=== PATIENT | female | born 1980 ===

== ENCOUNTER 2020-11-25 11:18 | Emergency (ER) | payer SELFPAY ==
[2020-11-25 12:10] VITALS: BP 125/89
[2020-11-25] MEDS ORDERED: HYDROcodone/ACETAMINOPHEN 5-325 MG TAB PO ONE (12:23)
[2020-11-25] MEDS ORDERED: ONDANSETRON 4 MG ODT TAB PO ONE (12:23)
--- NOTE | 2020-11-25 12:24 | Emergency Department Report ---
ED General Adult HPI - General Chief complaint: Headache Stated complaint: FACE PAIN AND LEFT SIDED PAIN Time Seen by Provider: 11/25/20 12:18 Source: patient Mode of arrival: Ambulatory Limitations: No Limitations - History of Present Illness Initial comments: [employer] line use: [place] 40 year old female who reports no significant past medical hx presents to ED with c/o left sided body pain and left sided CONLEY and facial pain. She states her symptoms started yesterday. She states she received the second dose of her Pfizer vaccine yesterday. The shot was in her right deltoid. She states after receiving the shot is when her symptoms started. She states that she is hurting in her left face, left side of her head, left chest/ribs, left arm, left abdomen and left leg and left back. She states that she took Tylenol without much relief of her pain she reports some mild nausea but no vomiting. She denies any left-sided weakness or facial weakness, numbness or tingling. She denies any SOB, cough, diarrhea, fever, chills, UTI symptoms, or any other associated symptoms. MD Complaint: Left sided body pain/left sided CONLEY -: Gradual (yesterday ) - Related Data Previous Rx's Medication Instructions Recorded Last Taken Type Ibuprofen [Motrin] 800 mg PO Q8HR PRN #30 tablet 11/25/20 Unknown Rx methOCARBAMOL [Robaxin TAB] 750 mg PO BID #30 tab 11/25/20 Unknown Rx Allergies Allergy/AdvReac Type Severity Reaction Status Date / Time No Known Allergies Allergy Unverified 11/25/20 11:23 ED Review of Systems ROS: Stated complaint: FACE PAIN AND LEFT SIDED PAIN Other details as noted in HPI Comment: All other systems reviewed and negative Constitutional: denies: chills, diaphoresis, fever, malaise, weakness ENT: other (left sided facial pain ). denies: ear pain, throat pain, dental stephanie n, hearing loss, epistaxis, congestion Respiratory: denies: cough, shortness of breath, SOB with exertion, SOB at rest, wheezing Cardiovascular: other (Left sided rib/cp ). denies: palpitations, dyspnea on exertion, orthopnea, edema, syncope, paroxysmal nocturnal dyspnea Gastrointestinal: abdominal pain, nausea. denies: vomiting, diarrhea, constipation, hematemesis, melena, hematochezia Genitourinary: denies: urgency, dysuria, frequency, hematuria, discharge, abnormal menses, dyspareunia Musculoskeletal: back pain, arthralgia, myalgia Skin: denies: rash, lesions Neurological: headache. denies: weakness, numbness, paresthesias, confusion, abnormal gait, vertigo Psychiatric: denies: anxiety, depression, auditory hallucinations, visual hallucinations, homicidal thoughts, suicidal thoughts Hematological/Lymphatic: denies: easy bleeding, easy bruising ED Past Medical Hx - Past Medical History Previous Medical History?: No - Surgical History Past Surgical History?: No - Social History Smoking Status: Never Smoker Substance Use Type: None - Medications Home Medications: Home Medications Medication Instructions Recorded Confirmed Last Taken Type Ibuprofen [Motrin] 800 mg PO Q8HR PRN #30 tablet 11/25/20 Unknown Rx methOCARBAMOL [Robaxin TAB] 750 mg PO BID #30 tab 11/25/20 Unknown Rx ED Physical Exam - General Limitations: No Limitations General appearance: alert, in no apparent distress - Head Head exam: Present: atraumatic, normocephalic, normal inspection - Eye Eye exam: Present: normal appearance, PERRL, EOMI Pupils: Present: normal accommodation - ENT ENT exam: Present: normal exam, mucous membranes moist, TM's normal bilaterally - Neck Neck exam: Present: normal inspection, full ROM. Absent: meningismus - Respiratory Respiratory exam: Present: normal lung sounds bilaterally, chest wall tenderness (left side ). Absent: respiratory distress, wheezes, rales, rhonchi - Cardiovascular Cardiovascular Exam: Present: regular rate, normal rhythm, normal heart sounds - GI/Abdominal GI/Abdominal exam: Present: soft, tenderness (very mild ttp without guarding or rebound ). Absent: distended, guarding - Extremities Exam Extremities exam: Present: normal inspection, full ROM, tenderness (diffuse muscle ttp left upper arm and shoulder and left lower leg ), normal capillary refill. Absent: pedal edema, joint swelling, calf tenderness - Back Exam Back exam: Present: normal inspection, full ROM, paraspinal tenderness (diffusely left thoracic and lumbar). 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 Absent: motor sensory deficit, reflexes normal - Psychiatric Psychiatric exam: Present: normal affect, normal mood - Skin Skin exam: Present: intact, normal color. Absent: rash ED Course Vital Signs 11/25/20 12:07 Temperature 98.9 F Pulse Rate 72 Respiratory 18 Rate Blood Pressure 125/89 O2 Sat by Pulse 98 Oximetry ED Medical Decision Making - Lab Data Result diagrams: 11/25/20 12:54 11/25/20 12:54 - EKG Data EKG shows normal: sinus rhythm Rate: normal (60) - EKG Data Interpretation: normal EKG - Radiology Data Radiology results: report reviewed Patient: GIOVANNI FRANCE MR#: [id number] : 1980 Acct:[id number] Age/Sex: 40 / F ADM Date: 11/25/20 Loc: ED Attending Dr: Ordering Physician: NEL PERKINS Date of Service: 11/25/20 Procedure(s): CT head/brain wo con Accession Number(s): [id number] cc: NEL PERKINS CT HEAD WITHOUT CONTRAST INDICATION / CLINICAL INFORMATION: Severe left sided CONLEY. TECHNIQUE: All CT scans at this location are performed using CT dose reduction for ALARA by means of automated exposure control. COMPARISON: None available. FINDINGS: HEMORRHAGE: None. EXTRA-AXIAL SPACES: Normal in size and morphology for the patient's age. VENTRICULAR SYSTEM: Normal in size and morphology for the patient's age. CEREBRAL PARENCHYMA: Multiple small benign scattered calcifications within both cerebral hemispheres. No significant abnormality. No acute territorial infarct. MIDLINE SHIFT OR HERNIATION: None. CEREBELLUM / BRAINSTEM: No significant abnormality. ORBITS: Normal as visualized. SOFT TISSUES of HEAD: No significant abnormality. CALVARIUM: No significant abnormality. PARANASAL SINUSES / MASTOID AIR CELLS: Normal as visualized. ADDITIONAL FINDINGS: None. IMPRESSION: 1. No acute intracranial abnormality. 2. 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 Signer Name: Aiden Evans MD Signed: 11/25/2020 1:52 PM Workstation Name: [id number] Transcribed By: TL Dictated By: Aiden Evans MD Electronically Authenticated By: Aiden Evans MD Signed Date/Time: 11/25/20 1352 DD/ 1342 TD/TT: - Medical Decision Making Patient presents to the ER today complaint of left-sided body pain and severe left-sided headache which started yesterday after she got her second Covid vaccine. She reports nausea but no other symptoms. Work-up today including head CT shows nothing acute. Patient has a chronic limp on her left side but otherwise she has no focal deficits on exam. She is not toxic or ill appearing and she is not in any pain or respiratory distress. Her VS are stable. Her history, exam, diagnostic testing and the patient's current condition does not suggest meningitis, stroke, sepsis, subarachnoid hemorrhage, intracranial bleeding, encephalitis, temporal arteritis or other significant pathology to warrant further testing, continued ED treatment, admission, neurological consul tation or other specialist evaluation at this point. Suspect musculoskeletal pain/atypical migraine which could possibly side effect from the Pfizer vaccine at this time. Discussed lab and imaging results and suspected diagnosis with patient. She expressed understanding of instructions and agree with plan. Patient stable at time of discharge Critical care attestation.: If time is entered above; I have spent that time in minutes in the direct care of this critically ill patient, excluding procedure time. ED Disposition Clinical Impression: Pain of left side of body, Side effects of vaccination, Headache Disposition: DC-01 TO HOME OR SELFCARE Is pt being admited?: No Does the pt Need Aspirin: No Condition: Stable Instructions: General Headache Without Cause, Muscle Pain, Adult Additional Instructions: Take the Motrin and muscle relaxer as prescribed. Follow up with PCP next week. Return to ED if worse. Prescriptions: Ibuprofen [Motrin] 800 mg PO Q8HR PRN #30 tablet PRN Reason: pain methOCARBAMOL [Robaxin TAB] 750 mg PO BID #30 tab Referrals: RONNIE MIDDLETON MD [Staff Physician] - 3-5 Days Forms: Work/School Release Form(ED) Time of Disposition: 15:31
[2020-11-25 13:13] LABS: Basophils % (Auto) 0.4 % (0.0-1.8); Eosinophils # (Auto) 0.1 K/mm3 (0.0-0.4); Eosinophils % (Auto) 0.7 % (0.0-4.3); Hematocrit 37.3 % (30.3-42.9); Hemoglobin 12.5 gm/dl (10.1-14.3); Lymphocytes # (Auto) 1.3 K/mm3 (1.2-5.4); Lymphocytes % (Auto) 18.7 % (13.4-35.0); Mean Corpuscular HGB Conc 34 % (30-34); Mean Corpuscular Volume 86 fl (79-97); Monocytes # (Auto) 0.6 K/mm3 (0.0-0.8); Monocytes % (Auto) 8.6 % (0.0-7.3); Platelet Count 264 K/mm3 (140-440); Red Blood Count 4.34 M/mm3 (3.65-5.03); Red Cell Distribution Width 14.2 % (13.2-15.2)
[2020-11-25 13:26] LABS: Alanine Aminotransferase 14 units/L (7-56); Albumin 4.4 g/dL (3.9-5); Blood Urea Nitrogen 10 mg/dL (7-17); Calcium 8.6 mg/dL (8.4-10.2); Hemolysis Index 6
[2020-11-25 13:36] LABS: BUN/Creatinine Ratio 33
--- NOTE | 2020-11-25 13:57 | Cat Scan Report ---
CT HEAD WITHOUT CONTRAST INDICATION / CLINICAL INFORMATION: Severe left sided CONLEY. TECHNIQUE: All CT scans at this location are performed using CT dose reduction for ALARA by means of automated e xposure control. COMPARISON: None available. FINDINGS: HEMORRHAGE: None. EXTRA-AXIAL SPACES: Normal in size and morphology for the patient's age. VENTRICULAR SYSTEM: Normal in size and morphology for the patient's age. CEREBRAL PARENCHYMA: Multiple small benign scattered calcifications within both cerebral hemispheres. No significant abnormality. No acute territorial infarct. MIDLINE SHIFT OR HERNIATION: None. CEREBELLUM / BRAINSTEM: No significant abnormality. ORBITS: Normal as visualized. SOFT TISSUES of HEAD: No significant abnormality. CALVARIUM: No significant abnormality. PARANASAL SINUSES / MASTOID AIR CELLS: Normal as visualized. ADDITIONAL FINDINGS: None. IMPRESSION: 1. No acute intracranial abnormality. 2. 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 Signer Name: Aiden Evans MD Signed: 11/25/2020 1:52 PM Workstation Name: [id number]
--- NOTE | 2020-11-25 14:10 | XRay Report ---
CHEST 2 VIEWS INDICATION / CLINICAL INFORMATION: left sided cp. COMPARISON: None available. FINDINGS: SUPPORT DEVICES: None. HEART / MEDIASTINUM: No significant abnormality. LUNGS / PLEURA: No significant pulmonary or pleural abnormality. No pneumothorax. ADDITIONAL FINDINGS: No significant additional findings. IMPRESSION: No acute cardiopulmonary abnormality. Signer Name: Se León MD Signed: 11/25/2020 2:06 PM Workstation Name: [id number]
[2020-11-25 15:00] LABS: Bacteria,Urine 1+ /HPF (Negative); Bilirubin,Urine NEG (Negative); Blood,Urine NEG (Negative); Color,Urine Yellow (Yellow); Mucus,Urine FEW /HPF; Protein,Urine <15 mg/dL mg/dL (Negative); Urobilinogen,Urine < 2.0 mg/dL (<2.0)
--- NOTE | 2020-11-27 10:29 | Electrocardiograph Report ---
[facility] Test Date: 2020-11-25 Test Time: 13:04:41 Pat Name: GIOVANNI MELVIN Department: Room: Gender: F House Visitor: TEENA : 1980 Requested By: NEL PERKINS Order Number: [id number] Reading MD: Claudio Yip Measurements Intervals [place] Rate: 60 P: 37 OK: 156 QRS: 49 QRSD: 90 T: 24 QT: 450 QTc: 449 Interpretive Statements Sinus rhythm No previous ECG available for comparison Electronically Signed On 11-27-2020 10:29:00 EDT by Claudio Yip
== END 2020-11-25 15:42 | disposition home or self-care (01) ==
LOC: EDSEX → ED 11:18
DX: R51.9 Headache, unspecified (principal); T50.B95A Adverse effect of other viral vaccines, initial encounter; M79.18 Myalgia, other site; Y92.89 Other specified places as the place of occurrence of the external cause; Z79.899 Other long term (current) drug therapy
CPT/HCPCS: 36415; 70450; 71046; 80053; 81001; 82550; 83735; 84484; 84703; 85025; 93005; 99284; Q0162